=== PATIENT | female | born 1950 | race Caucasian/White ===

== ENCOUNTER 2017-02-19 14:59 | Emergency (ER) | payer MEDICARE, OTHER ==
[2017-02-19 15:04] VITALS: BP 120/67; PULSE 112; TEMP 98; BMI 37.8
[2017-02-19] MEDS ORDERED: IBUPROFEN 600 MG TABLET (FP) PO ONE ×2 (15:38→15:42)
--- NOTE | 2017-02-19 15:39 | PDOC ---
History of Present Illness - General Chief Complaint: Injury Stated Complaint: FALL Time Seen by Provider: 02/19/17 15:12 History Source: Patient Exam Limitations: No Limitations - History of Present Illness Initial Comments: 02/19/17 15:34 66 yr female with right ankle swelling after twisted her ankle missed a few steps last night. Pt took tylenol for pain. Occurred: reports: yesterday Severity: Yes: mild Past History - Past Medical History Allergies/Adverse Reactions: Allergies Allergy/AdvReac Type Severity Reaction Status Date / Time No Known Drug Allergies Allergy Verified 02/19/17 15:04 Home Medications: Ambulatory Orders Losartan/Hydrochlorothiazide [Losartan-Hctz 100-12.5 mg Tab] 1 each PO DAILY Omeprazole [Prilosec (RX)] 40 mg PO DAILY 04/21/15 Asthma: Yes Cancer: No Cardiac Disorders: No CVA: No COPD: No CHF: No Dementia: No Diabetes: No GI Disorders: Yes (GERD) Disorders: No HTN: Yes Hypercholesterolemia: No Liver Disease: No Seizures: No Thyroid Disease: No - Surgical History Abdominal Surgery: Yes (HERNIA REPAIR X 3; ONE UMBILICAL) Cardiac Surgery: No Cholecystectomy: Yes Lung Surgery: No Neurologic Surgery: No - Immunization History Immunization Up to Date: Yes - Suicide/Smoking/Psychosocial Hx Smoking History: Never smoked Hx Alcohol Use: Yes (SOCIAL) Drug/Substance Use Hx: No Substance Use Type: None Review of Systems - Review of Systems Able to Perform ROS?: Yes Is the patient limited Micronesian proficient: No Constitutional: No: Symptoms Reported HEENTM: No: Symptoms Reported Respiratory: No: Symptoms reported Cardiac (ROS): No: Symptoms Reported ABD/GI: No: Symptoms Reported : No: Symptoms Reported Musculoskeletal: Yes: Symptoms Reported *Physical Exam - Vital Signs Last Vital Signs Temp Pulse Resp BP Pulse Ox 98.0 F 112 H 20 120/67 96 02/19/17 14:59 02/19/17 14:59 02/19/17 14:59 02/19/17 14:59 02/19/17 14:59 - Physical Exam General Appearance: Yes: Nourished, Appropriately Dressed HEENT: positive: EOMI, ALLISON Neck: positive: Supple Respiratory/Chest: positive: Lungs Clear, Normal Breath Sounds Cardiovascular: positive: Regular Rhythm, Regular Rate Musculoskeletal: positive: Normal Inspection Extremity: positive: Normal Capillary Refill, Swelling (lateral malleolus right ankle, TTP , nv intact ) Integumentary: positive: Normal Color, Dry, Warm Neurologic: positive: rig supervisor II-XII NML intact, Fully Oriented, Alert, Normal Mood/ Affect, Normal Response, Motor Strength 5/5 Procedures - Splinting Errol Bandage: yes, 3" Progress: 02/19/17 15:38 reyes dressing to the right ankle ED Treatment Course - RADIOLOGY Radiology Studies Ordered: Category Date Time Status ANKLE & FOOT-RIGHT* [RAD] Stat Radiology 02/19/17 15:12 Taken Medical Decision Making - Medical Decision Making 02/19/17 15:38 cc: right ankle pain and swelling after falling last night missed 3 steps and injured ankle. no dizzyness no loc, no deformity will xray to r/o fracture motrin for pain *DC/Admit/Observation/Transfer Diagnosis at time of Disposition: Ankle sprain Qualifiers: Encounter type: initial encounter Involved ligament of ankle: other ligament Laterality: right Qualified Code(s): S93.491A - Sprain of other ligament of right ankle, initial encounter - Discharge Dispostion Disposition: HOME Condition at time of disposition: Good - Referrals Referrals: Linn Bishop MD [Primary Care Provider] - Brian Srivastava MD [Staff Physician] - - Patient Instructions Additional Instructions: elevate and apply ice every 2hrs for 20 minutes for the next 2 days take motrin as needed for pain follow with the orthopedist next week for follow up - Post Discharge Activity
== END 2017-02-19 16:29 | disposition home or self-care (01) ==
LOC: JERFT 14:59
DX: S93.491A Sprain of other ligament of right ankle, initial encounter (principal); W10.8XXA Fall (on) (from) other stairs and steps, initial encounter; Y93.89 Activity, other specified; Y92.038 Other place in apartment as the place of occurrence of the external cause; I10 Essential (primary) hypertension; K21.9 Gastro-esophageal reflux disease without esophagitis; J45.909 Unspecified asthma, uncomplicated
CPT/HCPCS: 73610-TC-RT; 73630-TC-RT; 99281-25

== ENCOUNTER 2018-02-04 10:19 | Emergency (ER) | payer MEDICARE ==
[2018-02-04 10:27] VITALS: BMI 36.8
[2018-02-04] MEDS ORDERED: MAG HYDROX/AL HYDROX/SIMETH 30 ML UNIT-DOSE CUP ONE (10:35)
[2018-02-04] MEDS ORDERED: FAMOTIDINE 20 MG/50 ML IVPB 20 MG/50 ML MG IVPB ONE ×2 (10:36→11:03)
--- NOTE | 2018-02-04 10:46 | PDOC ---
History of Present Illness - General Chief Complaint: Pain Stated Complaint: PAIN Time Seen by Provider: 02/04/18 10:29 History Source: Patient Exam Limitations: No Limitations - History of Present Illness Initial Comments: 02/04/18 10:41 67 yo female pmh of HTN, asthma, GERD secondary to hiatal hernia, gastritis, UTIs and a cholecystectomy (2010) presents to the ED with sudden onset epigastric pain with radiation straight through her back. Pt states the pain woke her up out of sleep at 4 am and has been progressively worsening. Pt tried gas X which did not relieve the pain. Denies smoking or alcohol hx, focal neurological deficits, radiation of pain, exertional s/s, N/V/F/C, burning on urination, CP or SOB but does admit that she attempted to go to the bathroom for a BM this am without success Past History - Past Medical History Allergies/Adverse Reactions: Allergies Allergy/AdvReac Type Severity Reaction Status Date / Time No Known Drug Allergies Allergy Verified 02/04/18 10:23 Home Medications: Ambulatory Orders Losartan/Hydrochlorothiazide [Losartan-Hctz 100-12.5 mg Tab] 1 each PO DAILY Omeprazole [Prilosec (RX)] 40 mg PO DAILY 04/21/15 Albuterol Sulfate Inhaler - [Ventolin Hfa Inhaler -] 1 - 2 inh PO Q4H PRN Montelukast Na [Singulair -] 10 mg PO HS 11/24/17 Acetaminophen [Tylenol] 650 mg PO QID PRN 02/04/18 Amoxicillin/Potassium Clav [Amox-Clav 875-125 mg Tablet] 1 each PO BID 10 Days # 20 tablet 02/04/18 Cholecalciferol (Vitamin D3) [Vitamin D3 -] 1,000 unit PO DAILY 02/04/18 Ibuprofen [Motrin -] 800 mg PO BID 5 Days #10 tablet 02/04/18 Asthma: Yes Cancer: No Cardiac Disorders: No CVA: No COPD: No CHF: No Dementia: No Diabetes: No GI Disorders: Yes (GERD) Disorders: No HTN: Yes Hypercholesterolemia: No Liver Disease: No Seizures: No Thyroid Disease: No - Surgical History Abdominal Surgery: Yes (HERNIA REPAIR X 3; ONE UMBILICAL) Cardiac Surgery: No Cholecystectomy: Yes Lung Surgery: No Neurologic Surgery: No - Immunization History Immunization Up to Date: Yes - Suicide/Smoking/Psychosocial Hx Smoking History: Never smoked Hx Alcohol Use: Yes (SOCIAL) Drug/Substance Use Hx: No Substance Use Type: None Review of Systems - Review of Systems Constitutional: No: Chills, Fever Respiratory: No: Shortness of Breath Cardiac (ROS): No: Chest Pain ABD/GI: Yes: Other (epigastric pain radiating straight to the back). No: Constipated, Diarrhea, Nausea, Vomiting : No: Burning, Dysuria Musculoskeletal: Yes: Back Pain Neurological: No: Numbness, Paresthesia, Weakness *Physical Exam - Vital Signs Last Vital Signs Temp Pulse Resp BP Pulse Ox 97.8 F 81 22 H 160/81 98 02/04/18 10:22 02/04/18 10:22 02/04/18 10:22 02/04/18 10:22 02/04/18 10:22 - Physical Exam General Appearance: Yes: Nourished, Appropriately Dressed, Apparent Distress ( patient holding abdomen and diapheretic ) HEENT: positive: EOMI Respiratory/Chest: positive: Lungs Clear, Normal Breath Sounds. negative: Crackles, Rales, Rhonchi, Wheezing Cardiovascular: positive: Regular Rhythm, Regular Rate, S1, S2. negative: Edema , JVD, Murmur Vascular Pulses: Dorsalis-Pedis (R): 4+, Doralis-Pedis (L): 4+ Gastrointestinal/Abdominal: positive: Normal Bowel Sounds, Flat, Soft, Tenderness (epigastric, no CVA or suprapubic tenderness). negative: Pulsatile Mass, Distended, Guarding, Rebound Extremity: positive: Normal Capillary Refill Integumentary: positive: Normal Color, Warm, Diaphoresis Neurologic: positive: Fully Oriented, Alert, Normal Mood/Affect, Normal Response ED Treatment Course - LABORATORY CBC & Chemistry Diagram: 02/04/18 10:40 02/04/18 10:40 Medical Decision Making - Medical Decision Making 02/04/18 14:01 67 yo female presents to the ED with epigastric pain radiating to her back this am CBC, CMP, Lipase grossly normal UA + blood and WBC but not a symptomatic UTI Chest x ray no acute path and no significant change from last study Abd/pel non con CT shows large obstructing stone 13 by 3 mm in the distal right ureter causing hydroureter and hydronephrosis 02/04/18 14:[address] Mares who states pt can be sent home (no fever, WBC count) with oral antibiotics after 1g Ceftriaxone in the ED Will follow up in the Urology office Tuesday Strict return precautions given and DC home *DC/Admit/Observation/Transfer Diagnosis at time of Disposition: Nephrolithiasis - Discharge Dispostion Disposition: HOME Condition at time of disposition: Stable Decision to Admit order: No - Prescriptions Prescriptions: Amoxicillin/Potassium Clav [Amox-Clav 875-125 mg Tablet] 1 each PO BID 10 Days # 20 tablet - Referrals Referrals: Remy Gomez MD [Staff Physician] - - Patient Instructions Printed Discharge Instructions: DI for Kidney Stones Additional Instructions: Please make appointment with Dr. Gomez and follow up on Tuesday. He is aware of your diagnosis and office will be expecting your call. Please take the prescribed antibiotic as directed starting tomorrow and bring the medication to your Urology appointment Tuesday to discuss with your Doctor. Please return to the emergency department for new or worsening symptoms including but not limited to: fevers, chills, nausea, vomiting, severe abdominal pain or urinating blood. Please take Motrin 800 mg 2 times a day as needed for your pain Thank you - Post Discharge Activity
--- NOTE | 2018-02-04 10:46 | PDOC ---
Attending Attestation - Resident Resident Name: Moose Tse - HPI HPI: 02/04/18 13:06 Pt presents to the ED complaining of severe epigastric pain that radiates to the back. Denies nausea, vomiting or diarrhhea. Denies fever. Had a similar episode two years ago--was diagnosed with gastritis after negative work up. - Physicial Exam PE: 02/04/18 14:41 Agree with resident exam. PAtient is alert and oriented and in no acute distress. Abdomen is soft, non distended with epigastric tenderness without guarding or rebound. - Medical Decision Making 02/04/18 13:11 PT presents to the ED complaining of the acute onset of epigastric pain. Differential includes biliary disease, pancreatitis, gastritis, less likely ACS. Unlikely dissection since pain was improved with pepcid and patient has prior history of similar pain that was caused by gastritis. Will check CT scan , check labs and check EKG and two sets of cardaic enzymes.
[2018-02-04] MEDS ORDERED: morphine SULFATE 4 MG/ML VIAL IVPUSH ONE (10:48)
[2018-02-04] MEDS ORDERED: MAG HYDROX/AL HYDROX/SIMETH 30 ML UNIT-DOSE CUP PO ONE (10:54)
[2018-02-04] MEDS ORDERED: morphine SULFATE 4 MG/ML VIAL ONE (10:54)
[2018-02-04 11:43] LABS: ALBUMIN 4.2 g/dl (3.4-5.0); ALK PHOS 70 U/L (45-117); ANION GAP 11 MMOL/L (8-16); BILIRUBIN,TOTAL 0.5 mg/dL (0.2-1); BLOOD UREA NITROGEN 17 mg/dL (7-18); CALCIUM 9.2 mg/dL (8.5-10.1); CHLORIDE 104 mmol/L (98-107); CO2 24 mmol/L (21-32); GLUCOSE,RANDOM 114 mg/dL (74-106); LIPASE 146 U/L (73-393); SGOT/AST 50 U/L (15-37); SGPT/ALT 27 U/L (13-61); SODIUM 139 mmol/L (136-145)
[2018-02-04 12:14] LABS: HEMATOCRIT 39.4 % (32.4-45.2); HEMOGLOBIN 13.8 GM/dL (10.7-15.3); MCH 30.9 pg (25.7-33.7); MEAN CELL VOLUME 88.4 fl (80-96); RBC 4.46 M/mm3 (3.60-5.2); RDW 12.8 % (11.6-15.6); WHITE BLOOD COUNT 7.5 K/mm3 (4.0-10.0)
--- NOTE | 2018-02-04 12:29 | EKG ---
Test Reason : Blood Pressure : / mmHG Vent. Rate : 077 BPM Atrial Rate : 077 BPM P-R Int : 144 ms QRS Dur : 078 ms QT Int : 360 ms P-R-T Axes : 043 -13 004 degrees QTc Int : 407 ms NORMAL SINUS RHYTHM LOW VOLTAGE QRS CANNOT RULE OUT ANTERIOR INFARCT , AGE UNDETERMINED ABNORMAL ECG Confirmed by DIGNA DRAKE MD ([id number]) on 02/04/2018 12:28:57 PM Referred By: Confirmed By:DIGNA DRAKE MD
[2018-02-04 12:35] LABS: PLATELET ESTIMATE ADEQUATE
[2018-02-04 12:36] LABS: URINE APPEARANCE SLCLOUDY; URINE BILIRUBIN NEGATIVE (<2.0 mg/dL); URINE COLOR LTYELLOW; URINE GLUCOSE (UA) NEGATIVE (NEGATIVE); URINE KETONE NEGATIVE (NEGATIVE); URINE LEUK ESTERASE 3+ (NEGATIVE); URINE NITRITE NEGATIVE (NEGATIVE); URINE PROTEIN 1+ (NEGATIVE); URINE UROBILINOGEN NEGATIVE mg/dL (0.2-1.0)
[2018-02-04 12:48] LABS: EPI CELLS RARE /HPF (FEW); URINE BACTERIA RARE /hpf (NONE SEEN); URINE MUCUS RARE
[2018-02-04 12:58] LABS: ANISOCYTOSIS 1+; MACROCYTOSIS 0
[2018-02-04 14:15] VITALS: BP 144/71; PULSE 74; TEMP 98.5
[2018-02-04] MEDS ORDERED: CEFTRIAXONE 1,000 MG in DEXTROSE 5%-WATER - 50 ML IVPB ONE (14:59)
[2018-02-04] MEDS ORDERED: CEFTRIAXONE 1 GM/50 ML BAG ONE (15:03)
== END 2018-02-04 16:37 | disposition home or self-care (01) ==
LOC: JER 10:19
PROC: 3E033GC Introduction of Other Therapeutic Substance into Peripheral Vein, Percutaneous Approach (ICD-10-PCS; principal; 2018-02-04)
PROC: 3E03329 Introduction of Other Anti-infective into Peripheral Vein, Percutaneous Approach (ICD-10-PCS; 2018-02-04)
PROC: 3E033NZ Introduction of Analgesics, Hypnotics, Sedatives into Peripheral Vein, Percutaneous Approach (ICD-10-PCS; 2018-02-04)
DX: N13.2 Hydronephrosis with renal and ureteral calculous obstruction (principal); E78.5 Hyperlipidemia, unspecified; I10 Essential (primary) hypertension; J45.909 Unspecified asthma, uncomplicated; K44.9 Diaphragmatic hernia without obstruction or gangrene
CPT/HCPCS: 36415; 71046-TC-FY; 74176-TC; 80053; 81003; 81015; 82550; 82553; 83690; 84484; 85025; 87086; 87186; 93005; 93010; 96365; 96367; 96375; 99283-25

== ENCOUNTER 2018-06-01 11:33 | Day surgery (SDC) | payer MEDICARE, OTHER ==
[2018-05-31 09:39] VITALS: BMI 38.7
[2018-06-01] MEDS ORDERED: IBUPROFEN 800 MG/8 ML IJ IVPB PRN (14:19)
--- NOTE | 2018-06-01 14:19 | HP ---
History & Physical Update - History History: No Change - Physical Physical: No Change - Assessment Assessment: No Change - Plan Plan: No Change (05/09/2018)
[2018-06-01] MEDS ORDERED: ACETAMINOPHEN 1000 MG/100 ML VIAL (NON FORMULARY) IVPB ONE (14:22)
[2018-06-01] MEDS ORDERED: MIDAZOLAM HCL 2 MG/2 ML SINGLE DOSE VIAL ONE (14:24)
[2018-06-01] MEDS ORDERED: PROPOFOL 20 ML ONE ×3 (14:25)
[2018-06-01] MEDS ORDERED: DEXTROSE 5%-0.45% SALINE 1,000 ML IV SCH (14:30)
[2018-06-01] MEDS ORDERED: ONDANSETRON 4 MG/2 ML VIAL IVPUSH PRN (14:31)
[2018-06-01] MEDS ORDERED: oxyCODONE HCL 5 MG TABLET PO PRN ×2 (14:31)
[2018-06-01] MEDS ORDERED: LACTATED RINGERS SOLUTION 1,000 ML IV SCH (14:45)
[2018-06-01] MEDS ORDERED: ceFAZolin SODIUM 1 GM VIAL IVPB ONE (14:55)
[2018-06-01] MEDS ORDERED: ePHEDrine SULFATE 50 MG/1 ML AMPULE ONE (15:19)
[2018-06-01] MEDS ORDERED: ACETAMINOPHEN INJECTION 100 ML IVPB ONE (16:11)
[2018-06-01] MEDS ORDERED: ONDANSETRON 4 MG/2 ML VIAL ONE (16:52)
[2018-06-01 17:23] VITALS: BP 126/60; TEMP 98.3
--- NOTE | 2018-06-01 17:41 | OP ---
DATE OF OPERATION: 06/01/2018 PREOPERATIVE DIAGNOSIS: Right renal and right ureteral calculi. SURGEON: Vijay Douglas MD PROCEDURE: Right ureteroscopic laser lithotripsy and right ureteral stent placement. ANESTHESIA: General. FINDINGS: A large stone in the distal right ureter and a large stone in the mid pole of the right kidney. ESTIMATED BLOOD LOSS: None. DRAINS: A 22 x 6 double-J ureteral stent on the right. PREOPERATIVE INDICATIONS: The patient is a 67-year-old female with 2 stones. She comes to the OR for laser lithotripsy. OPERATION: The patient was brought to the OR, placed on the table in the supine position, given general anesthesia and IV antibiotics, and placed in the modified lithotomy position. The groin was prepped and draped sterilely. Timeout was performed. Cystoscopy was performed. The bladder was unremarkable except for a grade 2 cystocele. No tumors or stones were seen in the bladder. The right ureteral orifice was visualized, and a wire was passed up into the right kidney under fluoroscopic guidance. A 10-Jamaican dual-lumen catheter was used to dilate the UO. Ureteroscopy was performed. First, the semi-rigid scope was used, and the stone that was seen on the CAT scan in distal ureter was visualized. Using the holmium laser fiber, the stone was broken up, and the small pieces were all irrigated out. The rest of the ureter appeared to be clear of any stones. In the mid pole of the right kidney, a stone was seen also corresponding to the CAT scan findings with a flexible ureteroscope. Again, using the holmium laser fiber, the stone was broken up into small passable fragments and flushed out. No bleeding was seen, and no injuries to the ureter were seen. Over the remaining wire, a 6 x 22 double-J ureteral stent was left in place with 1 loop seen in the kidney on fluoroscopy and 1 loop in the bladder. The bladder was emptied. Patient was woken up. VIJAY DOUGLAS M.D. [id number]
[2018-06-01 18:50] VITALS: PULSE 99
== END 2018-06-01 18:50 | disposition home or self-care (01) ==
LOC: JASU-SURG 11:33
PROVIDERS: ATTEND Urology
PROC: 0TF38ZZ Fragmentation in Right Kidney Pelvis, Via Natural or Artificial Opening Endoscopic (ICD-10-PCS; principal; 2018-06-01 13:30)
PROC: 0TF68ZZ Fragmentation in Right Ureter, Via Natural or Artificial Opening Endoscopic (ICD-10-PCS; 2018-06-01 13:30)
PROC: 0T768DZ Dilation of Right Ureter with Intraluminal Device, Via Natural or Artificial Opening Endoscopic (ICD-10-PCS; 2018-06-01 13:30)
DX: N20.0 Calculus of kidney (principal); N20.1 Calculus of ureter
CPT/HCPCS: 76000-TC-FY; 94760; J0131